=== PATIENT | female | born 2000 | race African-American/Black ===

== ENCOUNTER 2023-12-09 14:14 | Emergency (ER) | payer OTHER ==
[2023-12-09 14:24] VITALS: BP 116/81; PULSE 105; RESP 16; TEMP 97.5; BMI 44.9
[2023-12-09 15:27] LABS: BASO % 0.2 % (0-2.0); EOS % 0.4 % (0-4.5); HEMATOCRIT 39.4 % (32.4-45.2); HEMOGLOBIN 13.2 GM/dL (10.7-15.3); MCH 28.2 pg (25.7-33.7); MCHC 33.4 g/dl (32.0-36.0); MEAN CELL VOLUME 84.2 fl (80-96); MEAN PLT VOLUME 7.5 fl (7.5-11.1); MONO % 6.3 % (3.8-10.2); NEUT % 79.1 % (42.8-82.8); PLATELET COUNT 210 10^3/uL (134-434); RBC 4.68 M/mm3 (3.60-5.2); RDW 13.6 % (11.6-15.6); WHITE BLOOD COUNT 6.7 K/mm3 (4.0-10.0)
[2023-12-09] MEDS ORDERED: ACETAMINOPHEN 500 MG TABLET (FP) ONE (15:27)
[2023-12-09] MEDS: ACETAMINOPHEN 500 MG TABLET (FP) PO ONE (15:43)
[2023-12-09 15:46] LABS: POTASSIUM 3.6 mmol/L (3.5-5.1)
[2023-12-09 15:48] LABS: ALBUMIN 4.2 g/dl (3.4-5.0); BLOOD UREA NITROGEN 9.9 mg/dL (7-18); CALCIUM 8.9 mg/dL (8.5-10.1)
[2023-12-09 15:52] LABS: CREATININE 0.7 mg/dL (0.55-1.3)
[2023-12-09 15:53] LABS: BILIRUBIN,TOTAL 0.5 mg/dL (0.2-1); TOT PROT 7.8 g/dl (6.4-8.2)
[2023-12-09 18:52] LABS: EPI CELLS 23 /uL (0-25.1); HYALINE CASTS 13 /uL (0-3.1); URINE APPEARANCE TURBID; URINE BILIRUBIN 2+ (NEGATIVE); URINE COLOR RED; URINE GLUCOSE (UA) NEGATIVE (NEGATIVE); URINE KETONE 2+ (NEGATIVE); URINE LEUK ESTERASE 2+ (NEGATIVE); URINE NITRITE POSITIVE (NEGATIVE); URINE PROTEIN 3+ (NEGATIVE); URINE WBC 3197 /uL (0-25.8)
[2023-12-09 20:05] LABS: URINE BACTERIA 43.5 /uL (0-1359); URINE RBC 7782.4 /uL (0-23.9); YEAST NONE SEEN (NEGATIVE)
== END 2023-12-09 17:40 | disposition home or self-care (01) ==
LOC: JERFT 14:14 → JER 14:14 → JERFT 17:38
DX: K52.9 Noninfective gastroenteritis and colitis, unspecified (principal); R53.83 Other fatigue; R10.9 Unspecified abdominal pain; R53.1 Weakness; Z20.822 Contact with and (suspected) exposure to COVID-19
CPT/HCPCS: 0241U-QW; 36415; 80053; 81003; 83735; 84703; 85025; 87086; 99283-25